=== PATIENT | male | born 1980 | race Caucasian/White ===

== ENCOUNTER 2022-10-10 16:56 | Emergency (ER) | payer SELFPAY ==
[~2022-10-10] VITALS: Ht 170.2 cm; Wt 81.6 kg
[2022-10-10 17:04] VITALS: BP 147/85
--- NOTE | 2022-10-10 17:24 | NUR ---
PATIENT [facility] [employer]. PATIENT EXAMINED BY DR. MESSINA. PATIENT MEDICALLY CLEARED AND RELEASED IN CUSTODY IN STABLE CONDITION. ORIGINAL PRE-BOOK FORM GIVEN TO OFFICER Vicky TAMEZ.
== END 2022-10-10 17:24 | disposition home or self-care (01) ==
LOC: MED 16:56
DX: S00.91XA Abrasion of unspecified part of head, initial encounter (principal); Y08.89XA Assault by other specified means, initial encounter; Y93.89 Activity, other specified; Y92.89 Other specified places as the place of occurrence of the external cause; Y99.8 Other external cause status
CPT/HCPCS: 99283